=== PATIENT | female | born 1940 | race Caucasian/White ===

== ENCOUNTER 2019-11-28 10:58 | Inpatient (IN) ==
[2019-11-28] MEDS ORDERED: MORPHINE IM ONE (12:19)
[2019-11-28] MEDS ORDERED: GLUCAGON SUBQ ONE (12:23)
--- NOTE | 2019-11-28 12:28 | PROVIDER DOCUMENTATION ---
HPI-EENT General - General Chief Complaint: Foreign Body/Throat Stated Complaint: MEDICINE STUCK IN THROAT Time Seen by Provider: 11/28/19 12:09 Source: patient, family (daughter at bedside) Allergies/Adverse Reactions: Patient Allergies Allergy/AdvReac Type Severity Reaction Status Date / Time No Known Allergies Allergy Verified 07/18/14 20:18 Home Medications: Home Medication List Medication Instructions Recorded Confirmed Last Taken Type Calcium Carbonate Chew [Tums] 1 tab PO DAILY 06/02/14 11/28/19 11/27/19 08:00 History LISINOpril [Prinivil] 10 mg PO BID 06/02/14 11/28/19 11/27/19 20:00 History Tiotropium [place] Inhaler 1 puff INH RTDAILY 06/02/14 11/28/19 11/27/19 08:00 History [Spiriva] Albuterol Sulfate [Proventil Hfa] 6.7 gm IH DAILY PRN 07/18/14 11/28/19 11/27/19 19:00 History Apixaban [Eliquis] 5 mg PO BID 07/18/14 11/28/19 11/27/19 20:00 History Carvedilol [Coreg] 3.125 mg PO BID #0 tablet 07/21/14 11/28/19 11/27/19 20:00 Rx Digoxin [Lanoxin] 125 microgm PO DAILY #0 tablet 07/21/14 11/28/19 11/27/19 08:00 Rx Furosemide [Lasix] 20 mg PO DAILY #0 tablet 07/21/14 11/28/19 11/27/19 08:00 Rx Spironolactone [Aldactone] 25 mg PO DAILY #0 tablet 07/21/14 11/28/19 11/27/19 08:00 Rx Levofloxacin [Levaquin] 500 mg PO DAILY #7 tab 12/02/19 Unknown Rx - History of Present Illness-EENT General Nature of Presenting Problem: 79 YO F presents with c/o something stuck in her throat. She believes it is her medications. She was seen here 2 days ago for similar symptoms. She went to urgent care first before her visit here and states they took an xray and were able to see the pills on her xray. They then sent her here to he ED. She states they gave her something to dissolve her medication and her symptoms improved. She tried taking her medication again today and thinks that they got stuck again. She is NAD on exam, states she is able to swallow liquids but cannot eat food. Quality of Pain: reports: none Onset/Duration: reports: this morning Timing: reports: still present, constant Prearrival Treatment: Initiated no prearrival treatment Similar Symptoms Previously?: Yes Recently seen or treated by another doctor?: No - Throat/Dental Throat/Dental Problem Symptoms: denies: sore throat Throat/Dental Problem Context: reports: foreign body Review of Systems - Adult - REVIEW OF SYSTEMS - ADULT Constitutional: denies: chills, fever Eyes: reports: see HPI Ears, Nose, Mouth & Throat: reports: no symptoms reported Cardiovascular: denies: chest pain Respiratory: reports: no symptoms reported Gastrointestinal: reports: see HPI Genitourinary: reports: see HPI Integumentary: reports: no symptoms reported Neurological: reports: no symptoms reported Endocrine: reports: no symptoms reported Hematologic/Lymphatic: reports: no symptoms reported Allergic/Immunologic: reports: no symptoms reported Past History - Adult - PAST MEDICAL HISTORY-ADULT Review of Records: reports: Old Records Reviewed, Medications Reviewed Cardiovascular: reports: A-Fib, CAD, HTN Respiratory: reports: COPD 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 negative: active bleeding Throat Exam: normal mouth inspection, pharynx normal Respiratory: lungs clear, normal breath sounds, no pleuratic chest pain, no respiratory distress Cardiovascular: tachycardia, irregularly irregular Abdominal Exam: non tender, soft Extremity: normal range of motion, non-tender, normal gait, normal inspection, no pedal edema, no calf tenderness Integumentary: normal color, normal turgor, warm/dry Neurologic: grossly normal Psych/Mental Status: normal mood/affect, oriented x 3 Progress - PLAN OF CARE/RESULTS Progress/Plan/Lab Results: Orders Category Date Time Status Admit - [facility] Routine AdmDCTranf 11/28/19 16:36 Active Activity - Bed Rest with BRP ORDERED Care 11/28/19 16:36 Completed Neurological Check Q12H Care 11/28/19 16:36 Completed Saline Loc DIRECTED Care 11/28/19 16:36 Completed Vital Signs Order Q 8-HR .ASSESS Care 11/28/19 16:36 Completed Clear Liquid Diet Diet 11/28/19 16:37 Completed Clear Liquid Diet Diet 11/28/19 16:49 Completed CHEST-2 VIEWS [RAD] Stat Exams 11/28/19 12:20 Completed CBC WITH ELECTRONIC DIFF [HEME] Stat Lab 11/28/19 14:18 Completed COMPREHENSIVE METABOLIC PANEL [CHEM] Stat Lab 11/28/19 14:18 Completed PROTIME WITH INR [COAG] Stat Lab 11/28/19 14:18 Completed PTT [COAG] Stat Lab 11/28/19 14:18 Completed TROPONIN T HIGH SENSITIVITY Stat Lab 11/28/19 14:18 Completed 0.9% Sodium Chloride Inj [Ns] 1,000 ml Med 11/28/19 16:45 Discontinued IV 75 mls/hr Glucagon Med 11/28/19 12:23 Discontinued 1 mg SUBQ NOW ONE Morphine Med 11/28/19 12:19 Discontinued 4 mg IM NOW ONE Pantoprazole [Protonix] Med 11/29/19 03:00 Discontinued 40 mg IV BID@0300,1500 Pantoprazole [Protonix] Med 11/28/19 14:01 Discontinued 40 mg IV NOW ONE Sodium Chloride 0.9% Med 11/28/19 14:01 Discontinued 10 ml INJ NOW ONE Sodium Chloride 0.9% Med 11/28/19 16:38 Discontinued 10 ml INJ NOW ONE Water, Sterile Inj [Sterile Water Inj.] Med 11/28/19 12:57 Discontinued 10 ml .ROUTE .STK-MED ONE Oxygen Device Routine Oth 11/28/19 16:37 Completed EKG [EKG] Stat Ther 11/28/19 13:42 Draft Transfer/Admit Order [TRANSFER] Routine Transfer 11/28/19 16:[address] Whitfield who states to admit the patient, start on IV protonix BID and fluids, hold eliquis for EDG in 2 days. Result Diagrams: 11/28/19 14:18 11/28/19 14:18 - REASSESSMENT Reassessment #1 Time Reassessed: 15:30 Status: other (hospitalist paged, no return) - EKG 1 Time of EKG reading by physician:: 14:04 EKG Read and Signed by:: Zuleika Dumont EKG Interpretation (*Must complete 3 of following elements*): Abnormal Rate: 116 Rhythm: sinus tach with 1st degree AV block [place]: normal QRS: normal GA Interval: normal ST Wave: non-specific ST changes Prior EKG Comparison: changes noted (last EKG on 07/18/14 showing Afib, pt currently sinus tach) - CONSULTS/PCP/HOSPITALIST Notification #1 *Consult/PCP/Hospitalist*: Dr. Whitfield Time Discussed: 13:44 Consult Disposition: Admit #2 Consult: Dr. Powell Time Discussed: 16:10 Consult Disposition: Admit Departure - Departure Date of Disposition Decision: 11/28/19 Time of Disposition Decision: 16:44 DIAGNOSIS: FB esophagus Disposition: ADMITTED INPATIENT 09 Certified Medical Emergency: Emergent Condition: Stable - Critical Care Note This patient required my direct & personal management of CC.: No Attestation - Physician/ EMEKA Attestation Patient care was provided by Advanced Practice Provider:: No The physician spent face to face time with patient:: Yes Advanced Practice Provider documentation review:: Supervising physician onsite and consulted in the evaluation and care of this patient. The physician did have a face to face encounter with the patient.
--- NOTE | 2019-11-28 12:49 | Diag Imaging Result Doc PS360 ---
CHEST-2 VIEWS - 11/28/2019 INDICATION: foreign body in esophagus COMPARISON: 07/18/2014 FINDINGS: Lungs are somewhat hyperexpanded compatible with COPD. There is cardiomegaly and pulmonary vascular congestion. No infiltrates or edema. No pneumothorax or pleural effusion. No radiodense foreign body. IMPRESSION: No radiodense foreign body. Electronically signed by Shaun Sandoval 11/28/2019 12:46 PM
[2019-11-28] MEDS ORDERED: STERILE WATER INJ. ONE (12:57)
[2019-11-28] MEDS ORDERED: SODIUM CHLORIDE 0.9% INJ ONE ×2 (14:01→16:38)
[2019-11-28] MEDS ORDERED: PROTONIX IV ONE (14:01)
--- NOTE | 2019-11-28 14:51 | EKG Report ---
Test Performed on : 11/28/2019 2:01:55 PM Test Reason : CP Blood Pressure : / mmHG Vent. Rate : 116 BPM Atrial Rate : 122 BPM P-R Int : 232 ms QRS Dur : 084 ms QT Int : 290 ms P-R-T Axes : 000 081 -33 degrees QTc Int : 403 ms Sinus tachycardia. with 1st degree AV block. with premature atrial complexes. ST & T wave abnormality, consider inferior ischemia Abnormal ECG When compared with ECG of 20-JUL-2014 05:47, Sinus rhythm. has replaced Atrial fibrillation. Inverted T waves have replaced nonspecific T wave abnormality in Inferior leads Nonspecific T wave abnormality no longer evident in Lateral leads Unconfirmed Result
[2019-11-28 14:54] LABS: BASO# 0.02 X1000 (0.0-0.2); BASO% 0.1 % (0.0-0.8); EOS# 0.04 X1000 (0.0-0.7); EOS% 0.3 % (0.0-10.0); HEMATOCRIT 46.8 % (37.0-47.0); HEMOGLOBIN 14.9 g/dL (12.0-16.0); IMM GRAN# 0.03 X1000 (0.0-0.04); IMM GRAN% 0.2 % (0.0-0.5); LYMPH# 1.84 X1000 (1.2-3.4); LYMPH% 12.9 % (20.5-51.1); MCH 28.4 PG (27-31); MCHC 31.8 g/dL (33-37); MCV 89.1 FL (81-99); MONO# 0.66 X1000 (0.11-0.59); MONO% 4.6 % (1.7-9.3); MPV 11.2 FL (7.4-10.4); NEUT# 11.62 X1000 (1.4-6.5); NEUT% 81.9 % (42.2-75.2); PLT 224 X1000 (130-400); RBC 5.25 XMIL (4.2-5.4); RDW 14.6 % (11.5-14.5); WBC 14.21 X1000 (4.8-10.8)
[2019-11-28 15:18] LABS: AGAP 11; ALB/GLOB RATIO 1.1; ALBUMIN 3.9 g/dL (3.5-5.0); ALKALINE PHOSPHATASE 63 U/L (32-104); BUN 9 mg/dL (8-22); CALCIUM 9.5 mg/dL (8.8-10.2); CHLORIDE 97 mmol/L (98-107); COSMO 275; CREATININE 0.9 mg/dL (0.5-0.9); ESTIMATED GFR > 60; GLUCOSE 211 mg/dL (70-104); GOT 22 U/L (10-30); GPT 12 U/L (10-36); POTASSIUM 4.5 mmol/L (3.5-5.1); SODIUM 135 mmol/L (136-145); TCO2 27 mmol/L (25-35); TOTAL BILIRUBIN 0.86 mg/dL (0.20-1.00); TOTAL PROTEIN 7.3 g/dL (6.3-8.3)
[2019-11-28 16:04] LABS: INR 1.15; PROTIME 14.9 Seconds (11.0-16.0)
[2019-11-28 16:05] LABS: PTT 32.2 Seconds (22.3-41.8)
[2019-11-28] MEDS ORDERED: NS 1,000 ML IV SCH (16:45)
--- NOTE | 2019-11-28 20:52 | HISTORY AND PHYSICAL ---
CHIEF COMPLAINT: Intermittent choking spells for the last 1 week. HPI: She is a 79-year-old pleasant white female came into the Med Surg clinic on Thursday and she is choking with the pills and apparently soft-tissue C-spine showed couple of pills in the hypopharynx. The patient was seen and sent to the emergency room. CT neck was unremarkable. The patient was sent home and came back again to the emergency room today that she has choking again with mostly pills. Liquids are going without any obstruction. As a result, the patient was admitted to the hospital for intermittent choking spells. Family was at bedside. She needs further workup. As a result a hospital admission was warranted. Last physical exam patient has 09/26/2019 in my office. PAST MEDICAL HISTORY: Chronic atrial fibrillation, right breast cancer, chronic diastolic heart failure, COPD, noncritical CAD with occluded RCA with collaterals EF 40%, type 2 diabetes, hypertension, acid reflux disease, hyperlipidemia. PAST SURGICAL HISTORY: Craniotomy for ruptured AV aneurysm, radical mastectomy on the right side, hysterectomy, tubal ligation. MEDICATIONS: Spiriva 1 puff daily, lisinopril 10 p.o. b.i.d. 2 times daily, Eliquis 5 mg p.o. b.i.d., ProAir as needed, Aldactone 25 daily, Coreg 3.125 p.o. b.i.d., Lanoxin 125 mcg daily, Lasix 20 mg daily. ALLERGIES: Not known. SOCIAL HISTORY: She is single, 2 kids, quit smoking 2015. 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 FAMILY HISTORY: Father of stroke at 71. Mom of stroke at 71. HEALTH MAINTENANCE: In my office flu vaccine 09/2019, pneumococcal 2009, mammography, DEXA scan 09/2017, colonoscopy [address] then seen [address] Dr[address] Whitfield on 10/14/2019. REVIEW OF SYSTEMS: HEENT: No headache, no vision problem, no earache. Has difficulty in choking and mostly with pills in the upper part of the throat. Cardiopulmonary: Irregular heart beat, no chest pain, shortness of breath, PND, orthopnea. GI: No nausea, vomiting, abdominal pain. : No history of hesitancy, frequency, dysuria. No swelling of legs. No joint pain. Neuro: No focal symptoms. OBJECTIVE: Temperature is 98.4 degrees, irregular tachycardic, blood pressure is 143/82, 2 L nasal cannula 95%, 5 feet 7 140 pounds.HEENT: Craniotomy scar on the right side of the head noted. Pupils equal, react to light. Tongue is at midline. No rashes noted. No lymphadenopathy. Neck: Supple. Chest: Bilateral air entry. Irregular heart sounds. Belly is soft, nontender. Good bowel sounds. No peripheral edema, cyanosis. No obvious neurological deficits. INVESTIGATIONS: White cell count 4.21, hematocrit 46.8, platelet 224,000, PT 15 INR 1.15, PTT 32. SMA 7, LFTs were normal, glucose 211. EKG atrial fibrillation with rapid ventricular response. Chest x-ray COPD changes, granulomatosis changes noted. CT neck 11/26/2019 no foreign body identified. Small thyroid nodules. ASSESSMENT AND PLAN: 1. 79-year-old white female admitted to the hospital recurrent choking spells with pills since a week ago. Plan is speech therapy, barium swallow evaluation. Dr. Whitfield consult. 2. IV fluids. 3. IV PPI . 4. Hold the Eliquis and atrial fibrillation on Coreg and apixaban and lisinopril, Aldactone and digoxin and Lasix. Will follow up. cc: Callum Powell MD [facility]
[2019-11-29] MEDS: DEMEROL IV PRN ×3 (01:56→23:23)
[2019-11-29] MEDS: PROTONIX IV SCH ×2 (06:28→17:44)
[2019-11-29] MEDS: SPIRIVA INH SCH (08:29)
--- NOTE | 2019-11-29 09:47 | Diag Imaging Result Doc PS360 ---
EXAM: BA SWALLOW W/VIDEO SPEECH THER 11/28/2019 HISTORY: choking TECHNIQUE: 104 images, 16 mGy, 24 seconds fluoroscopy time. COMMENT: There is no evidence of aspiration. There is a relatively smooth impression on the posterior proximal cervical esophagus at the level of the C3-4 disc space. This is not terribly consistent. There is no evidence of stricture or obstruction in the thoracic esophagus. Minimal to and fro movement of barium is seen in the distal two thirds of the esophagus, indicating mild presbyesophagus. IMPRESSION: Minimal cricopharyngeal achalasia and presbyesophagus. Electronically signed by Sonny Black 11/29/2019 9:44 AM
[2019-11-29] MEDS ORDERED: SODIUM CHLORIDE 0.9% 10 ML ONE ×2 (11:14→15:05)
[2019-11-29] MEDS: LANOXIN IV SCH ×2 (12:07→15:15)
[2019-11-29 17:24] LABS: URINE SOURCE CLEAN CATCH
[2019-11-29 17:45] LABS: BILIRUBIN URINE NEGATIVE (NEGATIVE); BLOOD URINE SMALL (NEGATIVE); COLOR YELLOW; GLUCOSE URINE NEGATIVE (NEGATIVE); KETONE URINE NEGATIVE (NEGATIVE); LEUKOCYTES URINE LARGE (NEGATIVE); NITRITE URINE NEGATIVE (NEGATIVE); PH URINE 6.5; PROTEIN URINE 30 mg/dL (NEGATIVE); TURBIDITY URINE HAZY (CLEAR); UROBILINOGEN URINE 2 mg/dL (NORMAL)
[2019-11-29 17:54] LABS: UR EPITHELIAL CELLS <10 /HPF (<10); URINE BACTERIA NEGATIVE /HPF; URINE RBC <10 /HPF (<10); URINE WBC TNTC /HPF (<10)
[2019-11-29 18:04] LABS: URINE CASTS NONE SEEN; URINE CRYSTALS NONE SEEN; URINE SMALL ROUND CELLS RENAL PRESENT; URINE TRICHOMONAS PRESENT; URINE YEAST NONE SEEN
--- NOTE | 2019-11-29 19:35 | Diag Imaging Result Doc PS360 ---
EXAM: XRAY HIP UNILATERAL LT 11/29/2019 HISTORY: Hip pain TECHNIQUE: Left hip two views COMMENT: There is no evidence of fracture or dislocation. No other acute bony abnormalities present. IMPRESSION: No acute disease. Electronically signed by Sonny Black 11/29/2019 7:32 PM
--- NOTE | 2019-11-29 21:25 | PROGRESS NOTE ---
DATE: 11/29/2019 SUBJECTIVE: A 79-year-old, white female, admitted to the hospital yesterday, for intermittent choking spells in the upper part of the esophagus. The patient had speech therapy and barium swallows done today, which showed achalasia of the cricopharyngeus and presbyesophagus. Findings discussed with the patient. Now complains of left hip pain. PHYSICAL EXAMINATION: Temperature is 98 degrees, pulse 67. Vitals are stable.HEENT: Craniotomy scar on the right side of the head. Neck: Supple. Chest: Clear. Irregular heart sounds. Belly is soft, nontender. No evidence of rash noted. LABORATORY DATA: None reported. ASSESSMENT AND PLAN: 1. 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 2. Left hip pain. We will get x-rays of the hip. 3. Paroxysmal atrial fibrillation. On Eliquis, on hold. Continue on beta blockers and Lanoxin as needed. Consult Dr. Whitfield for the further opinion. Apparently, the ER physician talked to Dr. Whitfield on the telephone and consider EGD. Advance to GI soft diet and follow up on the left hip x-rays. LEVEL OF DOCUMENTATION: 25 minutes. cc: Callum Powell MD
[2019-11-30] MEDS: PROTONIX IV SCH ×2 (03:37→16:41)
[2019-11-30] MEDS: SPIRIVA INH SCH (08:12)
[2019-11-30] MEDS: LOPRESSOR IV PRN (09:37)
[2019-11-30] MEDS: LANOXIN IV SCH (09:37)
--- NOTE | 2019-11-30 12:30 | GASTROENTEROLOGY CONSULTATION ---
DATE: 11/30/2019 REASON FOR CONSULT: Dysphagia. HISTORY OF PRESENT ILLNESS: Ms. Lindsey is a 79-year-old female who came into the hospital on 11/28/2019 with complaints of choking sensation. The patient had [facility] to see Dr. Powell on Thursday, and she complained that she felt like she had a pill stuck in her throat. Soft tissue C-spine showed that she had pills in the hypopharynx, and the patient was sent to the emergency department. According to Dr. Powell, the CT of the neck was unremarkable. The patient was sent home, and she came back again to the emergency room complaining of choking sensation, mostly pills getting stuck. She was able to swallow liquids. The patient sees Dr. Whitfield, and she said that she was scheduled for a colonoscopy in December. The patient today denied having any problems swallowing. She was able to have her breakfast. She is currently on 2 L nasal cannula. She has denied any fever, chills, but does mention that she had some shortness of breath. She has denied any abdominal pain, but complains of pain in her legs bilaterally. The patient has history of atrial fibrillation, breast cancer, diastolic heart failure, COPD, diabetes, hypertension, acid reflux, and hyperlipidemia. PAST MEDICAL HISTORY: Chronic atrial fibrillation, right breast cancer, diastolic heart failure, COPD, coronary artery disease with occluded RCA with ejection fraction of 40%, type 2 diabetes, hypertension, acid reflux, and hyperlipidemia. PAST SURGICAL HISTORY: Craniotomy for ruptured AV aneurysm, radical mastectomy on the right side, hysterectomy, tubal ligation, and cholecystectomy. ALLERGIES: No known drug allergies. SOCIAL HISTORY: The patient is a , has 2 kids. She quit smoking in 2015 and has denied any alcohol or illicit drug use. FAMILY HISTORY: Positive for stroke in both her father and mother. Father and mother both of stroke. HOME MEDICATIONS: Spiriva 1 puff daily, lisinopril 10 mg p.o. twice a day, Tums 500 mg 1 tablet daily, Eliquis 5 mg p.o. twice a day, albuterol sulfate 6.7 grams inhalation daily as needed, Aldactone 25 mg p.o. daily, Coreg 3.125 mg p.o. daily, digoxin 125 mcg p.o. daily, and furosemide 20 mg p.o. daily. REVIEW OF SYSTEMS: As per HPI. Otherwise, 12-point review of system is negative. PHYSICAL EXAMINATION: Vital Signs: Temperature 98.5 degrees, pulse 80, respirations 16, blood pressure 140/67, oxygen saturation 97% on 1 liter nasal cannula. The patient's weight is 140 pounds, BMI is 21.9 kg/m2. General: She is alert, oriented x3. Answering questions appropriately and in no acute distress. HEENT: Pale conjunctivae. No icterus. PERRL. Neck: Supple. Lungs: Clear to auscultation. Cardiovascular: Regular rate and rhythm. Abdomen: Soft, nontender, nondistended. Active bowel sounds heard in all 4 quadrants. Extremities: No clubbing, no cyanosis, no edema. Pedal pulses 2+ present bilaterally. Neurological: Alert and oriented x3. Nonfocal. Cranial nerves 2 through 12 grossly intact. LABS: CBCs are from 11/28/2019. Her WBC is 14.21, RBC 5.25, hemoglobin 14.9, hematocrit is 46.8, platelet count is 224,000. Sodium is 135, potassium 4.5, chloride 97, carbon dioxide is 27, anion gap 11, BUN 9, creatinine 0.9, glucose 211, calcium 9.5, total bilirubin 0.86, AST 22, ALT 12, alkaline phosphatase 63, albumin is 3.9. IMAGING: Her chest x-ray on 11/28/2019 showed no radiodense foreign body. Hip x- ray on 11/29/2019 had shown no acute disease. BARIUM SWALLOW AND SPEECH EVALUATION: The patient had a modified barium swallow done on 11/28/2019, and it showed minimal cricopharyngeal achalasia and presbyesophagus. The patient had speech therapy done on 11/29/2019, and it showed that she may be at risk for proximal redirection of swallowed food and liquids or gastric contents to the level of pharynx with airway penetration and aspiration likely, particularly during the hours of sleep secondary to mild to moderate esophageal shelf, diffuse esophageal spasm and gastric reflux. IMPRESSION AND PLAN: 1. Dysphagia. 2. Atrial fibrillation. 3. Chronic obstructive pulmonary disease. 4. Type 2 diabetes. 5. Hypertension. 6. Gastroesophageal reflux disease. 7. Congestive heart failure. PLAN: Ms. Lindsey is a 79-year-old female with a history of atrial fibrillation, right breast cancer, congestive heart failure. GI has been consulted for her dysphagia. We plan to do an EGD tomorrow to find out the cause of dysphagia. The patient is currently receiving IV fluids with normal saline at 75 mL. She is on PPI twice a day. Further plan of care will be based on the EGD findings. We will continue to monitor the patient and follow the plan of care per PCP. This plan was discussed with Dr. Espino. Thank you for your consult. Please call us for any further questions or concerns. Dictated by ANGELA Mar for Raffi Espino MD cc: Callum Powell MD [facility]
--- NOTE | 2019-11-30 21:30 | PROGRESS NOTE ---
DATE: 11/30/2019 SUBJECTIVE: Patient complains of left hip pain, requiring Demerol last night. Continues to have dysphagia and choking spells and patient is off of Eliquis. REVIEW OF SYSTEMS: Otherwise none reported. OBJECTIVE: Temperature is 98.7 degrees, pulse is 83, blood pressure is 138/56.HEENT: No change. Neck: Supple. Chest: Clear. Heart: Irregular heart sounds. Abdomen: Belly is soft, nontender. No obvious deficits. INVESTIGATIONS: Urine cultures were negative. ASSESSMENT AND PLAN: 1. Dysphagia due to achalasia of the cricopharyngeus and presbyesophagus. Waiting for EGD in the morning, off Eliquis. 2. Urine dipstick is positive for infection. Blood cultures are negative. 3. Left hip pain. X-rays reviewed nothing, unremarkable. Etiology is not clear. 4. Chronic atrial fibrillation on Lanoxin IV and metoprolol. 5. Gastrointestinal prophylaxis with IV Protonix. We will hold the home medications and out of the bed with physical therapy today and GI consult with Dr. Whitfield/Dr. Espino and will follow up. LEVEL OF DOCUMENTATION: 35 minutes. cc: Callum Powell MD
[2019-12-01] MEDS: PROTONIX IV SCH (06:24)
[2019-12-01] MEDS: SPIRIVA INH SCH (08:20)
[2019-12-01] MEDS: LANOXIN IV SCH (08:45)
[2019-12-01] MEDS ORDERED: DIPRIVAN 1% ONE ×2 (08:55→09:06)
[2019-12-01] MEDS ORDERED: FENTANYL ONE (08:55)
--- NOTE | 2019-12-01 09:47 | ENDOSCOPY OPERATIVE NOTE ---
[facility] ENDOSCOPY OPERATIVE NOTE , EGD WITH DILATION PROCEDURE REPORT EXAM DATE: 12/01/2019 PATIENT NAME: Jessica Lindsey MR#: [id number] BIRTHDATE: 1940 ATTENDING: Terrell Whitfield MD STATUS: inpatient GLOBAL MARKETING SPECIALIST: Beckie Colvin and Helena Bourne INDICATIONS: The patient is a 79 yr old female here for an EGD with dilation due to Dysphagia, H/o P ill Impaction, ? Cricopharyngeal achalasia. PROCEDURE PERFORMED: EGD w/ biopsy EGD w/ dilation (harish) MEDICATIONS: Per Anesthesia TOPICAL ANESTHETIC: none CONSENT: The patient understands the risks and benefits of the procedure and understands that these r isks include, but are not limited to: sedation, allergic reaction, infection, perforation and/or bleeding. Alternative means of evaluation and treatment include, among others: physical exam, x-rays, and/or surgical intervention. The patient elects to proceed with this endoscopic procedure. HISTORY AND PHYSICAL: 12/01/2019 DESCRIPTION OF PROCEDURE: During pre-op preparation period all mechanical and medical equipment was c hecked for proper function. Hand hygiene and appropriate measures for infection prevention was taken. After the risks, benefits and alternatives of the procedure were thoroughly explained, Informed consent was verified, confirmed and timeout was successfully executed by the treatment team. The patient was anesthetized with topical anesthesia and the [id number]-r08 ([id number]) endoscope was introduced through the mouth and advanced to the second portion of the duoden um. The instrument was slowly withdrawn as the mucosa was fully examined. ESOPHAGUS: Z line was noted at 45 cms. A mildly severe Schatzki ring was found in the distal esopha leonardo. The stricture was dilated using a 18mm (54Fr) Pugh dilator. Following this dilation, there was no change in the appearance of the stricture and a small amount of heme. DUODENUM: The duodenal mucosa showed no abnormalities in the duodenal bulb, 1st part duodenum, and 2n d part duodenum. STOMACH: Mild gastritis (inflammation) was found in the gastric body and gastric antrum. Multiple bi opsies were performed using cold forceps. Sample sent for histology. Dilation was performed at distal esophagus. DILATOR: SIZE(S): RESISTANCE: HEME: APPEARANCE: Dilator: Pugh Size(s): 48, 54 Fr Resistance: minimal Heme: yes Appearance: adequat e COMMENT: Retroflexion was performed in the stomach and revealed no abnormalities. ADVERSE EVENTS: There were no complications. IMPRESSIONS: 1. Z line was noted at 45 cms 2. Schatzki ring was found in the distal esophagus; The stricture was dilated using a 18mm (54Fr) Ma maría dilator.; Following this dilation, there was no change in the appearance of the stricture and a small amount of heme 3. The duodenal mucosa showed no abnormalities in the duodenal bulb, 1st part duodenum, and 2nd part duodenum 4. Gastritis (inflammation) was found in the gastric body and gastric antrum; multiple biopsies were performed RECOMMENDATIONS: 1. Await biopsy results 2. Begin an anti-reflux lifestyle: avoid acidic foods and drinks (like coffee and soda), do not lie down three hours after eating, elevate the head of your bed 6 to 9 inches, stop smokiing and reduce weight if needed. 3. Start PPI once daily for 90 days then wean down to Pepcid 20 mg twice daily as needed. Chew food well. REPEAT EXAM: Terrell Whitfield MD eSigned: Terrell Whitfield MD 12/01/2019 9:46 AM cc: CPT CODES: 1. 40373 Upper gastrointestinal endoscopy including esophagus, stomach, and either th e duodenum and/or jejunum as appropriate; with biopsy, single or multiple 2. [id number] Upper gastrointestinal endoscopy including esophagus, stomach, and either the duodenum and/ or jejunum as appropriate; with pugh dilation of esophagus (less than 30 mm diameter) ICD CODES: The ICD and CPT codes recommended by this software are interpretations from the data that the [facility] staff has captured with the software. The verification of the translation of this report to the ICD and CPT [place] and modifiers is the sole responsibility of the health care institution and practicing physician where this report was generated. [employer] will not be held responsible for the validity of the ICD and CPT codes i ncluded on this report. [employer] assumes no liability for data contained or not contained herein. CPT is a registered [employer] [place] of the [employer]. PATIENT NAME: Jessica Lindsey MR#: [id number]
[2019-12-01] MEDS: LOPRESSOR IV PRN (16:12)
--- NOTE | 2019-12-01 21:21 | PROGRESS NOTE ---
DATE: 12/01/2019 SUBJECTIVE: The patient was seen twice this morning. Complains of left hip pain. X-rays were negative. REVIEW OF SYSTEMS: None reported. Urine cultures gram-positive cocci. PHYSICAL EXAMINATION: Vital signs: Temperature is 97 degrees, pulse 98, vitals are stable. HEENT: Within normal limits. Chest: Clear. Heart: Irregular heart sounds. Abdomen: Belly is soft, nontender. No obvious deficits. INVESTIGATIONS: Urine cultures gram-positive cocci. ASSESSMENT AND PLAN: 1. 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 Esophagogastroduodenoscopy showed moderate Schatzki's ring dilated and after procedure the patient is tolerating the diet very well. 2. We will resume the home medicines. 3. Urinary tract infection. Currently symptomatic. We will follow up on culture and sensitivity. 4. Left hip pain, etiology to be determined. X-rays were negative and if she tolerates gastrointestinal soft diet and medications, we will discharge in the morning. We will continue to follow up the left hip pain. LEVEL OF DOCUMENTATION: 35 minutes. cc: Callum Powell MD
[2019-12-02] MEDS: LOPRESSOR IV PRN (04:19)
[2019-12-02] MEDS ORDERED: SODIUM CHLORIDE 0.9% INJ SCH (06:00)
[2019-12-02] MEDS ORDERED: PROTONIX IV SCH (06:00)
[2019-12-02 08:11] VITALS: BP 137/98
[2019-12-02] MEDS: LANOXIN IV SCH (08:17)
[2019-12-02] MEDS: SPIRIVA INH SCH (08:50)
[2019-12-02] MEDS ORDERED: ELIQUIS PO SCH (09:00)
[2019-12-02] MEDS ORDERED: COREG PO SCH (09:00)
[2019-12-02] MEDS ORDERED: TUMS PO SCH (09:00)
[2019-12-02] MEDS ORDERED: PRINIVIL PO SCH (09:00)
[2019-12-02] MEDS ORDERED: LASIX PO SCH (09:00)
[2019-12-02] MEDS ORDERED: ALDACTONE PO SCH (09:00)
--- NOTE | 2019-12-04 18:56 | DISCHARGE SUMMARY ---
ADMISSION DATE: 11/28/2019 DISCHARGE DATE: 12/02/2019 DISCHARGE DIAGNOSIS: Intermittent dysphagia, upper part of the neck due to achalasia of cricopharyngeus and presbyesophagus SECONDARY DIAGNOSES: 1. Esophagitis with mild Schatzki rings dilated by Dr. Whitfield. 2. Urinary tract infection with streptococcal anginosus. 3. Left hip pain, etiology to be determined. 4. Chronic atrial fibrillation. 5. Right breast cancer status post radical mastectomy. 6. Chronic diastolic heart failure. 7. Chronic obstructive pulmonary disease. 8. 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 9. Type 2 diabetes. 10. Hypertension. 11. Hyperlipidemia. CONSULTS: Dr. Whitfield PROCEDURES: 1. Speech Therapy with upper GI barium video swallowing study consistent with presbyesophagus and achalasia of cricopharyngeus. 2. EGD findings - reflux disease with Schatzki's ring. Still agitated. BRIEF HISTORY: Please see the history and physical that was done on 11/28/2019. In brief, she is a 79-year-old pleasant white female who has been seen several times with intermittent choking spells, not able to swallow the pills and seen twice in the outpatient clinics and the ER, admitted to hospital for evaluation. The patient was started on IV fluids. Eliquis was started. Further workup revealed the dysphagia was due to presbyesophagus, achalasia and Schatzki's ring. The patient was tolerating the diet very well. She was complaining of left hip pain. X-rays were negative. Physical exam is benign. Urine cultures positive for gram-positive oxide due to Streptococcus anginosus which is sensitive to Levaquin. The patient was asymptomatic. LABS: At the time of discharge as follows: White cell count 14, hematocrit 46, platelets 224,000, PT/INR is normal. Sodium 135, potassium 4.5, chloride 97, BUN 9, creatinine 0.9, glucose 211. LFTs were normal. Urinalysis positive for infection which is due to Streptococcus anginosus. After the EGD, patient is tolerating the diet very well. DISCHARGE INSTRUCTIONS: 1. Spiriva 1 puff daily. 2. Lisinopril 10 mg p.o. b.i.d. 3. Calcium carbonate. 4. Tums 1 tablet daily. 5. Eliquis 5 mg p.o. b.i.d. 6. Proventil HFA as needed. 7. Aldactone 25 mg daily. 8. Coreg 3.125 p.o. b.i.d. 9. Lanoxin 125 mcg daily. 10. Lasix 20 mg daily. 11. Levaquin 500 daily for 7 days. 12. Follow up in my office in 2 weeks. cc: MD Terrell Stoddard MD
== END 2019-12-02 09:42 | disposition home health service (06) | DRG 392 ==
LOC: ED 10:58 → EDIPHOLD 17:11 → 4N 20:28
PROVIDERS: ADMIT Internal Medicine; ATTEND Internal Medicine